=== PATIENT | female | born 1995 | race Caucasian/White ===

== ENCOUNTER 2018-05-12 13:14 | Outpatient (CLI) | payer OTHER ==
--- NOTE | 2018-05-12 16:05 | ULT ---
OBSTETRIC SONOGRAM: 05/12/18 HISTORY: Second trimester evaluation. survey. FINDINGS: Multiple transabdominal sonographic views of the gravid uterus show a single intrauterine gestation i n transverse presentation with the head to the maternal left. Cervix is closed and 9.[address] 0 [address] acenta is anterior. No gross intracranial abnormalities. Amniotic fluid is within normal limits. Feta l spine and kidneys are intact as visualized. Four chamber heart shows motion at 149 beats per minute . Three vessel cord shows a normal insertion. Measurements are as follows: Biparietal diameter 20 weeks, 5 days Head circumference 20 weeks, 6 days Abdominal circumference 20 weeks, 6 days Femur length 21 weeks, 1 day Estimated date of delivery based on today's sonogram is 09/22/18. Hadlock percentile 20%. IMPRESSION: Single viable intrauterine gestation with estimated gestational age based on today's sonogram of 21 w eeks, 0 days. POS: [facility]
== END 2018-05-12 13:15 | disposition home or self-care (01) ==
LOC: BICULT 13:14
PROVIDERS: ATTEND Family Medicine
DX: O09.292 Supervision of pregnancy with other poor reproductive or obstetric history, second trimester (principal)
CPT/HCPCS: 76805

== ENCOUNTER 2018-09-19 14:23 | Inpatient (IN) | payer OTHER ==
[2018-09-21] MEDS ORDERED: Ondansetron PF 4 MG/2 ML Vial IVP PRN ×3 (06:45→14:04)
[2018-09-21] MEDS ORDERED: Promethazine HCl 25 MG/ML VIAL IM PRN ×2 (06:45→10:49)
[2018-09-21] MEDS ORDERED: Carboprost 250 MCG/ML AMP IM PRN (06:45)
[2018-09-21] MEDS ORDERED: NS w/ Oxytocin 10 units 500 ML IV SCH ×2 (06:45)
[2018-09-21] MEDS ORDERED: Butorphanol Tartrate 1 MG/ML VIAL SLOW IVP PRN (06:45)
[2018-09-21] MEDS ORDERED: Penicillin G Potassium 5 MILL.UNITS in Sodium Chloride 0.9% 100 ML IVPB SCH (06:45)
[2018-09-21] MEDS ORDERED: Methylergonovine 0.2 MG/ML VIAL IM PRN (06:45)
[2018-09-21] MEDS ORDERED: Ibuprofen 800 MG TAB PO PRN (06:45)
[2018-09-21] MEDS ORDERED: HYDROcodone/Acetaminophen 5/325 mg Tablet PO PRN ×3 (06:45→14:04)
[2018-09-21] MEDS ORDERED: Lactated Ringer's 1,000 ML IV SCH (06:45)
[2018-09-21] MEDS ORDERED: Diphenoxylate HCl/Atropine Tablet PO PRN (06:45)
[2018-09-21] MEDS ORDERED: Lidocaine 1% (PF) 30 ML VIAL SC PRN (06:45)
[2018-09-21] MEDS ORDERED: Misoprostol 200 MCG TAB PR PRN (06:45)
[2018-09-21] MEDS ORDERED: NS w/ Oxytocin 10 units 500 ML ONE (07:35)
[2018-09-21] MEDS ORDERED: Penicillin G Potassium 5 MILL.UNITS VIAL ONE (07:35)
[2018-09-21 07:54] LABS: Hemoglobin 12.5 g/dL (12.0-16.0); Mean Corpuscular HGB CONC 33.6 g/dL (32.0-36.0); Mean Corpuscular Hemoglobin 31.8 pg (27.0-31.0); Mean Corpuscular Volume 94.5 fL (78.0-98.0); Mean Platelet Volume 8.1 fL (7.4-10.4); Platelet Count 238 thou/uL (130-400); RBC Distribution Width 12.6 % (11.5-14.5); Red Blood Cell (RBC) Count 3.92 mill/uL (4.20-5.40); White Blood Cell (WBC) Count 8.2 thou/uL (4.8-10.8)
[2018-09-21 08:13] VITALS: BMI 35.0
[2018-09-21 08:29] LABS: HBSAg Index 0.32 S/CO (0-0.99); Hep B Surf Ag Non-Reactive S/CO (NonReactive); Syphilis Antibody Nonreactive (Nonreactive); Syphilis Antibody Index 0.03 S/CO (<1.00 Non-Reactive)
[2018-09-21] MEDS ORDERED: Fentanyl 4 mcg/Bup 0.1% Cadd 100 ML ONE (09:54)
[2018-09-21] MEDS ORDERED: Bupivacaine 0.5% 10 ML VIAL ONE (10:19)
[2018-09-21] MEDS ORDERED: Fentanyl 100 MCG/2 ML VIAL ONE (10:19)
[2018-09-21] MEDS ORDERED: Eucerin (Mineral Oil/Petrolatum,White) 30 gm Jar TOP PRN (10:49)
[2018-09-21] MEDS ORDERED: diphenhydrAMINE 50 MG/ML VIAL IVP PRN (10:49)
[2018-09-21] MEDS ORDERED: Lactated Ringer's 500 ML IV PRN (10:49)
[2018-09-21] MEDS ORDERED: ePHEDrine/0.9% NaCl/PF SYRINGE 50 mg/10 ml SLOW IVP PRN (10:49)
[2018-09-21] MEDS ORDERED: Naloxone HCl 0.4 mg/ml Vial IVP PRN ×2 (10:49)
[2018-09-21] MEDS ORDERED: Acetaminophen 325 MG TAB PO PRN (10:49)
[2018-09-21] MEDS ORDERED: Communication Order-Pharmacy FS SCH (11:00)
[2018-09-21] MEDS ORDERED: Fentanyl 4 mcg/Bupivacaine 0.1% Cassette 100 ML EPIDURAL SCH (11:00)
[2018-09-21] MEDS: Penicillin G 2.5 MILL.units 2.5 MILL.UNITS in Premix Bag 1 BAG IVPB SCH ×2 (11:08→18:31)
[2018-09-21] MEDS: NS / Oxytocin 40 units/1000ml 1,000 ML IV PRN ×2 (12:15→13:29)
[2018-09-21] MEDS ORDERED: Milk Of Magnesia 30 ML UDCUP PO PRN (14:04)
[2018-09-21] MEDS ORDERED: Lanolin Ointment 7 GM TUBE TOP PRN (14:04)
[2018-09-21] MEDS ORDERED: Bisacodyl 10 MG SUPP PR PRN (14:04)
[2018-09-21] MEDS ORDERED: Benzocaine-Menthol 82.5 ML CAN TOP PRN (14:04)
[2018-09-21] MEDS ORDERED: NS / Oxytocin 40 units/1000ml 1,000 ML IV SCH (14:04)
[2018-09-21] MEDS ORDERED: diphenhydrAMINE 25 MG CAP PO PRN (14:04)
[2018-09-21] MEDS ORDERED: Preparation H Ointment 28 GM TUBE PR PRN (14:04)
[2018-09-21] MEDS: Ibuprofen 800 MG TAB PO SCH ×2 (18:31→20:48)
[2018-09-21] MEDS: Ferrous Sulfate 325 MG TAB PO SCH (18:31)
[2018-09-21] MEDS: Docusate Calcium (SURFAK) 240 MG CAP PO SCH (20:48)
[2018-09-22] MEDS: Ibuprofen 800 MG TAB PO SCH ×2 (05:21→13:57)
[2018-09-22 06:16] LABS: Hemoglobin 11.6 g/dL (12.0-16.0); Mean Corpuscular HGB CONC 34.1 g/dL (32.0-36.0); Mean Corpuscular Hemoglobin 32.9 pg (27.0-31.0); Mean Corpuscular Volume 96.6 fL (78.0-98.0); Mean Platelet Volume 8.2 fL (7.4-10.4); Platelet Count 242 thou/uL (130-400); RBC Distribution Width 12.6 % (11.5-14.5); Red Blood Cell (RBC) Count 3.53 mill/uL (4.20-5.40); White Blood Cell (WBC) Count 11.2 thou/uL (4.8-10.8)
[2018-09-22] MEDS: Ferrous Sulfate 325 MG TAB PO SCH (08:42)
[2018-09-22] MEDS ORDERED: Prenatal Vitamin 1 TAB PO SCH (09:00)
[2018-09-22] MEDS: Docusate Calcium (SURFAK) 240 MG CAP PO SCH (10:16)
[2018-09-22 11:56] VITALS: BP 126/87; TEMP 97.8
== END 2018-09-22 15:59 | disposition home or self-care (01) | DRG 807 ==
LOC: EDSTATUS 15:25 → L&D 09-21 05:52 → 3SW 09-21 15:25
PROVIDERS: ADMIT Family Medicine; ATTEND Family Medicine
PROC: 10E0XZZ Delivery of Products of Conception, External Approach (ICD-10-PCS; principal; 2018-09-21)
PROC: 0KQM0ZZ Repair Perineum Muscle, Open Approach (ICD-10-PCS; 2018-09-21)
PROC: 10907ZC Drainage of Amniotic Fluid, Therapeutic from Products of Conception, Via Natural or Artificial Opening (ICD-10-PCS; 2018-09-21)
PROC: 3E033VJ Introduction of Other Hormone into Peripheral Vein, Percutaneous Approach (ICD-10-PCS; 2018-09-21)
DX: O99.824 Streptococcus B carrier state complicating childbirth (principal); Z37.0 Single live birth; O48.0 Post-term pregnancy; O36.63X0 Maternal care for excessive fetal growth, third trimester, not applicable or unspecified; O70.1 Second degree perineal laceration during delivery; Z3A.40 40 weeks gestation of pregnancy; Z88.1 Allergy status to other antibiotic agents
CPT/HCPCS: 36415; 51702; 85027; 86780; 86850; 86900; 86901; 87340; J2540; J3010; J3490

== ENCOUNTER 2020-10-24 15:16 | Outpatient (CLI) | payer OTHER | END 2020-10-24 15:17 | disposition home or self-care (01) | LOC: BICULT 15:16 | PROVIDERS: ATTEND Nurse Practitioner | DX: O09.93 Supervision of high risk pregnancy, unspecified, third trimester (principal); Z3A.29 29 weeks gestation of pregnancy | CPT/HCPCS: 76805 ==